=== PATIENT | female | born 1940 | race Caucasian/White ===

== ENCOUNTER 2016-10-10 10:18 | Inpatient (IN) | payer MEDICARE, BC ==
[~2016-10-10] VITALS: Ht 165.1 cm; Wt 74.6 kg
--- NOTE | ~2016-10-10 | HP ---
ADMIT: 10/10/2016 RM/LOC: 429 [facility] MR#: [id number] [address] [facility] [place], [place] [address] AMANDO SCHULTZ [address] [place] [address] History and Physical SEX: F AGE: 76 : 1940 DATE OF SERVICE: CHIEF COMPLAINT: Nausea and shortness of breath. HISTORY OF PRESENT ILLNESS: The patient is a 76-year-old female. She has a past medical history of recently diagnosed myasthenia, GERD, who presents to [facility] Room today with complaints of shortness of breath and nausea, going on over the last several days. The patient has noted paroxysms of just shortness of breath and tightness in her jaw with squeezing feeling in her neck going along with shortness of breath. She has also noted progressive weakness and decreased exercise tolerance. The patient has noted a little bit of lower abdominal discomfort and some bloating and no dysuria or fevers or chills have been noted. The patient also notes that she really struggled with her myasthenia, currently on a regimen of prednisone and Mestinon. Full work diagnosis was made in February or March in [place], initially she was on higher doses of prednisone. The patient's neck muscle weakness and eyelid droop improved greatly, but shoulder and proximal muscle weakness just has not improved as much of the family would like and were hoping to get in to see some neurologist here locally. In the emergency room, the patient was also noted to be mildly hypoxemic and put on a couple of liters of oxygen. She is admitted for further evaluation and treatment. PAST MEDICAL HISTORY: 1. Myasthenia gravis, diagnosed in [place], currently on Mestinon 60 q.i.d. and prednisone 20 mg daily. 2. Anxiety. 3. Gastroesophageal reflux disease. 4. Glaucoma. 5. She is status post total hysterectomy. 6. Status post x2. 7. History of knee arthroscopy. The patient does note she has had colonoscopies x2 in the past and has gotten regular mammograms. 8. Atrophic vaginitis. CURRENT MEDICATIONS: Include: 1. Mestinon 60 mg q.i.d. 2. Prednisone 5 mg four times a day. 3. Diazepam 5 mg p.r.n. 4. Omeprazole 20 mg daily. 5. Latanoprost eyedrops. 6. Vitamin herbal concentrate. 7. Estrace cream twice weekly. ALLERGIES: SHE HAS NO KNOWN MEDICAL ALLERGIES. FAMILY HISTORY: Mother with heart disease. Father needed a pacemaker. 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 No alcohol or tobacco. She is as mentioned, recently moved back to [place] from [place] to be closer to family members. REVIEW OF SYSTEMS: Review of systems are noted above. The patient also denies any dysphagia or dysarthria. She denies any focal neurologic complaints, does mention some mild ankle swelling. No fevers or chills have been noted. PHYSICAL EXAMINATION: VITAL SIGNS: T-max is 100, 92, 24, 95/50, 92% on 2 L by nasal cannula. GENERAL: This is an obese elderly female. She is in no apparent distress. She is awake. She is alert and oriented x3. Cooperative and pleasant with the examiner. Anxious at times throughout our interview. NECK: Supple without any obvious lymphadenopathy. HEART: Regular. LUNGS: May be a little diminished at the bases, but otherwise were clear. ABDOMEN: Soft, nontender, and nondistended. Positive bowel sounds throughout. EXTREMITIES: She has really maybe just trace ankle edema. Pulses were positive. NEUROLOGIC: Cranial nerves are intact. No focal deficits are noted at this time. She has good manager oncology strength. SKIN: Shows no obvious rashes. LABORATORY DATA: Lab work shows hemoglobin of 13.4, white count 17.5, and 171,000 platelets. Sodium 134, potassium 4, BUN is 18, creatinine 0.9, bicarb is 26, BNP was 7460, CK 27, MB 1.3, troponin is 0.258. LFTs were within normal limits. UA showed 1+ blood, positive nitrite, trace leukocyte esterase, 11 white cells, 1 red cell, rare bacteria. Procalcitonin was 0.25 with a lactic acid of 1.5. Chest x-ray shows no obvious airspace disease, maybe some mild cardiomegaly. EKG shows normal sinus rhythm at 85 beats per minute. I do not see any acute ST or T-wave segment changes. ASSESSMENT AND PLAN: 1. Dyspnea, jaw pain, chest tightness concerning for anginal equivalent. 2. Elevated troponin, possible acute coronary syndrome. 3. Hypoxic respiratory failure. 4. Myasthenia gravis on prednisone and Mestinon. 5. Urinary tract infection. PLAN: At this time, Cardiology will see the patient. We are going to trend other cardiac enzymes and EKGs, she needs an echo. She does not look grossly fluid overloaded at this point, does not have lot of pulmonary edema or rales. Her BNP is elevated, as mentioned we will see what her echo looks like and trend those enzymes. I am concerned that these paroxysms of chest tightness ADMIT: 10/10/2016 RM/LOC: 429 [facility] MR#: [id number] [address] [facility] [facility] [place], [place] [address] AMANDO SCHULTZ [address] [place] [address] History and Physical SEX: F AGE: 76 : 1940 or squeezing sensation in her neck and jaw pain might be an anginal equivalent. We will see how things go. Her respiratory status, she is not using any accessory muscles right now. D-dimer is pending. We are going to try to titrate her oxygen, make sure she has incentive spirometry. I am actually going to check a blood gas on her. Concerning her myasthenia gravis, they were concerned about getting in to see Dr. Reynolds with Neurology. Right now, I am going to change her over to some IV Solu-Medrol and continue with the Mestinon. We will have some Pepcid for GI protection. If she is not currently having any nausea, but it sounds like she had a lot of side effects from pyridostigmine, might need to use some glycopyrrolate to help with some of those side effects. We are going to cover her with antibiotics right now. Blood cultures are pending. We will follow her closely on telemetry. Bret Garcia MD/ bernardo JOB #: [id number] CC: Cody Rice, Attending Physician Cody Rice, Family Physician
--- NOTE | ~2016-10-10 | ECH ---
Transthoracic Echocardiography Report (TTE) Demographics Patient Name AMANDO SCHULTZ Date of Study 10/11/2016 M Patient Number [id number] Visit Number [id number] Date of 1940 Room Number 429 Accession Number [id number] Gender Female Age 76 year(s) Referring Jose Lam MD Kiln Charger Charla Lopez [facility] Physician Physician Yogi Delaney MD Fagoter Physician Mckinley Supervising Ordering Physician Amalia Pascal MD, MD/P Nurse Stress Lock Installer Conclusions Contractility Score Summary At rest the following contractility abnormalities were noted: Hypokinesis of the Mid franklin-septal, the Mid infero-septal, the Apical septal and the Basal franklin-septal segments. Contractility of all other segments appeared normal. Summary Technically fair exam. The estimated left ventricular ejection fraction is 60-65%. Mild concentric left ventricular hypertrophy. Diastolic assessment reveals Grade I diastolic dysfunction. The interventricular septum is flattened which is consistent with right ventricular pressure / and or volume overload. Moderately dilated right ventricle. Moderately reduced right ventricular function with hypokinesis of the apex. The right atrium is mildly dilated. Moderate tricuspid regurgitation by color Doppler. There is moderate pulmonary hypertension. The pulmonary pressure (RVSP) is 52 mmHg. Mild pulmonic valve regurgitation by color Doppler. Recommendation The patient will be given the results of this study by the physician who ordered the exam. Procedure Type of Study TTE procedure:Echo Complete SF. Procedure Date Date: 10/11/2016 Start: 08:24 AM Technical Quality: Adequate visualization Indications:Elevated Troponin and Pulmonary embolus. Additional Indications:elevated BNP Appropriate Use Criteria: 9 Height: 65 inches Weight: 165 pounds BSA: 1.82 m Rhythm: Irregular HR: 95 bpm BP: 96/63 mmHg M-Mode/2D Measurements LV Diastolic Dimension: 3.56 cm LV Systolic Dimension: 2.09 cm LV Septum Diastolic: 1.07 cm LV PW Diastolic: 1.09 cm AO Root Dimension: 2.69 cm Cardiac Output: 2.9 l/min LA Dimension: 3.37 cm Cardiac Index: 1.59 l/min*m RV Diastolic Dimension: 4.12 cm LA volume index: 15 ml/m LVOT: 2.04 cm LVOT VTI: 9.36 cm RV Base: 5.4 cm LV Stroke volume: 30.58 ml RV Mid: 4.2 cm LV Stroke volume index: 16.8 ml/m RV Length: 6 cm TAPSE: 1.9 cm TDI-S': 9 cm/s Doppler Measurements AV Peak Velocity: 0.9 m/s MV Peak E-Wave: 0.38 m/s AV Peak Gradient: 3.24 mmHg MV Peak A-Wave: 0.6 m/s AV Mean Gradient: 0.76 mmHg MV E/A Ratio: 0.63 LVOT Peak Velocity: 0.72 m/s MV P1/2t: 62.5 msec AV Area (Continuity):4.08 cm MV Deceleration Time: 265.2 msec TR Velocity:3.31 m/s MV Area (PHT): 3.52 cm TR Gradient:43.88 mmHg PV Peak Velocity: 0.5 m/s Estimated RAP:8 mmHg PV Peak Gradient: 0.98 mmHg Estimated RVSP: 52 mmHg Estimated PASP: 51.88 mmHg RA Area: 18.96 cm Findings Left Ventricle The left ventricle is normal in size . Mild concentric left ventricular hypertrophy. Diastolic assessment reveals Grade I diastolic dysfunction. The interventricular septum is flattened which is consistent with right ventricular pressure / and or volume overload. Right Ventricle Moderately dilated right ventricle. Moderately reduced right ventricular function. Ruiz's sign noted with apical hypokinesis of the RV. Left Atrium Normal left atrial size. Right Atrium The right atrium is mildly dilated. Mitral Valve Normal mitral valve structure and function. Mild mitral regurgitation by color Doppler. Aortic Valve The aortic valve is mildly sclerotic. There is no aortic regurgitation by color Doppler. Tricuspid Valve Normal appearing tricuspid valve. Moderate tricuspid regurgitation by color Doppler. There is moderate pulmonary hypertension. The pulmonary pressure (RVSP) is 52 mmHg. Pulmonic Valve Normal pulmonic valve structure and function. Mild pulmonic valve regurgitation by color Doppler. Pericardial Effusion No evidence of pericardial effusion. Miscellaneous Visualized portions of the aortic root and ascending aorta appear normal in size. Pleural Effusion No evidence of pleural effusion. Contractility Score LV regional wall motion:(0-Non visualized 1-Normal 2-Hypokinesis 3-Akinesis 4-Dyskinesis 5-Aneurysm) Signature Electronically signed by [facility]) on 10/11/2016 10:24 AM
--- NOTE | 2016-10-15 10:29 | CO ---
ADMIT: 10/10/2016 RM/LOC: 429 [facility] MR#: [id number] [address] [facility] [place], [place] [address] AMANDO MARCOS [address] [place] [address] Consultation SEX: F AGE: 76 : 1940 DATE OF CONSULTATION: 10/11/2016 ATTENDING PHYSICIAN: Cody Rice CONSULTING PHYSICIAN: Rock Dykes MD HISTORY OF PRESENT ILLNESS: She is seen at the request of Dr. Garcia for evaluation of her pulmonary embolism. The patient is 76, nonsmoker. She has moved to [place] to leave from [place]. End of February, she was diagnosed with myasthenia gravis. Extensive workup there did not show any thymoma. It was her told me diagnosed from the weakness and from serological diagnosis. She has been ever since on treatment with Mestinon and prednisone. She has ended up gaining weight. She has reflux, anxiety, glaucoma, and has had previously hysterectomy and , and knee arthroscopy. She does have atrophic vaginitis. She had no abnormalities in the mammograms. She had a colonoscopy done in 2004 and subsequently the year she could not tell me. MEDICATIONS: 1. Mestinon 60 mg q.i.d. 2. Prednisone 5 mg 4 times a day. 3. Diazepam 5 mg p.r.n. 4. Omeprazole 20 mg daily. 5. Latanoprost eyedrops. 6. Vitamin herbal concentrate. 7. Estrace cream twice weekly. ALLERGIES: NO KNOWN MEDICAL ALLERGIES. 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 Rare alcohol use. Her is a very well informed forensic barb, who has medical information and was asking very pertinent questions. The story that they jointly contributed to were that she has been having some intermittent lower neck tightness, probably starting March. It is infrequent, but for the last 1 week, it has been more so and that is what she came into the hospital for. She had a slightly elevated troponin to 0.258 and that warranted Cardiology consultation, and initially there was a desire to proceed with a cardiac catheterization. She also has been short of breath. She has some edema intermittently in the ankle right more than the left, has gained considerable amount of weight, maybe close to 25 pounds ever since the diagnosis of myasthenia. The questions the diagnosis of myasthenia. He badly needed to see the neurologist here, but I am told that neurologist is not available for new patients. He has taken her to [place], but was not very impressed with the Neurology evaluation. He really wished I was the neurologist, but was disappointed when I told I was not. In any event, she had a CT angiogram done, which shows bilateral pulmonary embolism. There are some clots in the main pulmonary artery, but is not a saddle embolus. She did not have any syncope. Her blood gasses showed mild hypoxia with respiratory ADMIT: 10/10/2016 RM/LOC: 429 [facility] MR#: [id number] [address] [facility] [address] [place] [phone] AMANDO MARCOS [facility] [address] [place] [address] Consultation SEX: F AGE: 76 : 1940 alkalosis, pH 7.468, PCO2 of 29, PO2 66.2, and bicarbonate 20.5 on 2 liters. Her creatinine was 1.1, white count 17.5, may be because of the prednisone, hemoglobin 13.4, and platelets 171. Lactic acid was 1.5, procalcitonin 0.25. Her chest x-ray from 10/10/2016, looked normal to me. CTA showed bilateral pulmonary embolism. PHYSICAL EXAMINATION: GENERAL: She is a very pleasant lady. She was somewhat tachypneic breathing around 22 per minute. She is on oxygen supplementation. She has trace edema on the right, none on the left. No calf tenderness. ABDOMEN: Soft. No organomegaly. CHEST: Clear. HEART: There was no heart murmur, but slight tachycardia. VITAL SIGNS: Her blood pressure has been 100/60, heart rate mostly in the high 90s to 100. NECK: There was no lymph node enlargement in the neck. EXTREMITIES: There was no clubbing. I reviewed the labs as I mentioned. She is due to have the venous Doppler studies and echocardiogram. I have discussed with Dr. Delaney. CLINICAL IMPRESSION: 1. Pulmonary embolism, probable deep venous thrombosis in the right leg. 2. Diagnosis of myasthenia gravis and several months of corticosteroid use and concomitant weight gain. She has been having a diarrhea and that is attributed to the Mestinon. I had a long session with and Mrs. Marcos. He mentioned dissolving the clot. I said the clot gets dissolved only with TPA or thrombolytic agents. She is not the right indication for that. She did not have syncope. She does not have any hemodynamic compromise. Slightly elevated troponin may be considered to be because of right-sided strain, and there may be some pulmonary hypertension, but that in herself may not justify giving her thrombolytic therapy with an attended approximately 3% risk of major bleeding. I also told that inferior vena cava umbrella placement is not a recommended measure per [employer] consensus statement. The ADMIT: 10/10/2016 RM/LOC: 429 [facility] MR#: [id number] [address] [facility] [address] [place], [place] [address] AMANDO MARCOS [address] [place] [id number] Consultation SEX: F AGE: 76 : 1940 latest publication came in August 2015. My suggestion would be to treat her with Xarelto, may stop the heparin, Xarelto standard dose being 15 mg b.i.d. for 3 weeks followed by 20 mg a day. The duration may be 3 months to 6 months. A coagulopathy workup may be indicated, and she may need to have a colon check to ensure that there is no malignancy as a cause for her DVT, but the fact that she has gained significant amount of weight. She has been more weak and has been more inactive for the last 1 week or so may be actually the cause for the clot formation. I would like to thank Dr. Garcia for this kind referral. Rock Dykes MD/ bernardo JOB #: [id number] CC: Cody Rice, Attending Physician Cody Rice, Family Physician Bret Garcia MD
--- NOTE | 2016-10-19 10:36 | CO ---
ADMIT: 10/10/2016 RM/LOC: 429 [facility] MR#: [id number] [address] [facility] [place], [place] [address] APARNA SCHULTZ [address] [place] [address] Consultation SEX: F AGE: 76 : 1940 DATE OF CONSULTATION: 10/10/2016 ATTENDING PHYSICIAN: Cody Rice CONSULTING PHYSICIAN: Dolly Holland MD REASON FOR CONSULT: Elevated troponin. HISTORY OF PRESENT ILLNESS: Aparna is a very pleasant 76-year-old female, who presented to the ER today after increasing frequency and severity of episodes of throat tightness, which radiates inferiorly through her sternum. She states that this first started happening about 3 weeks ago, but it would only last a few seconds. As of this week, it has happened four times and has lasted anywhere from 45-60 minutes at a time. It would happen when she is just sitting in a chair. Nothing seems to make the pain worse or help the pain go away. She has tried taking Valium when it happens and it does not seem to help. She has recently been struggling with myasthenia gravis, which was diagnosed in March of 2016. She has had increasing profound weakness and shortness of breath upon exertion. She thinks that the shortness of breath is due to the weakness caused by the myasthenic gravis. She was diagnosed with this while she and her were still living in [place]. She had a neurologist there, but is yet to establish care with a neurologist here. She denies having any overt chest pain, orthopnea, PND, palpitations, or presyncopal episodes. CARDIAC HISTORY AND RISK FACTORS: Aparna denies having any sort of cardiac history. She states that she has never had heart problems in the past. She is a lifetime nonsmoker, and denies ever having high blood pressure, high cholesterol or diabetes. She has no family history of coronary artery disease. PAST MEDICAL HISTORY: This includes; myasthenia gravis, diagnosed in March of 2016. Bilateral shoulder pain. Intermittent acid reflux. Anxiety. Recent vaginal discharge. Hemorrhoids. Glaucoma. Cataracts. PAST SURGICAL HISTORY: Per patient report, she has had a hysterectomy and knee surgery. ALLERGIES: NO KNOWN MEDICAL ALLERGIES. MEDICATIONS: Home medications include: 1. Pyridostigmine. 2. Omeprazole. 3. Latanoprost. 4. Diazepam. 5. Estrace cream. 6. Prednisone 5 mg, five times daily. 7. Multivitamin. ADMIT: 10/10/2016 RM/LOC: 429 [facility] MR#: [id number] [address] [facility] [address] [place] [phone] APARNA SCHULTZ [address] [place] [address] Consultation SEX: F AGE: 76 : 1940 FAMILY HISTORY: Aparna states that her father did have a pacemaker. She states her mother took digitalis for many years, but she is unaware of her underlying diagnosis. There is no other family history of heart disease, diabetes, cancer, or stroke that she is aware of. SOCIAL HISTORY: Aparna does admit to drinking 2-3 cups of caffeinated beverages daily. She denies any use of alcohol or nonprescription drugs. 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 They have been for 58 years. They previously lived in [facility] [place], but have recently moved to [place] to be near their son, [id number], and grandchildren. REVIEW OF SYSTEMS: GENERAL: Positive for fatigue. Positive for weight gain. Denies fever, chills, sweats, rash. EYES: Positive for glaucoma and cataracts. Denies double vision, blurred vision. ENT: Positive for ringing in ears. Denies hearing loss or problems with nose, mouth or throat. PULMONARY: Positive for snoring loudly at night. Denies cough, sputum production, asthma, emphysema or bronchitis. Denies wakefulness at night, or fatigue upon awakening. GASTROINTESTINAL: Positive for throat tightness and hemorrhoids. Denies heartburn. No change in bowel habits. Denies dark or bloody stools. No history of ulcers, hiatal hernia, or gallbladder or liver disease. GENITOURINARY: Denies dysuria, hematuria, nocturia, urinary tract infection, or kidney stones. Denies history of renal insufficiency or failure. MUSCULOSKELETAL: Positive for arthritis. Denies history of gout. Denies muscle or joint pains. ENDOCRINE: Denies history of thyroid dysfunction or diabetes. HEMATOLOGIC: Denies history of anemia, easy bruising, or cancer. NEUROLOGIC: Denies chronic headaches, dizziness, syncope, stroke, seizures or numbness or tingling. PSYCHIATRIC: Positive for anxiety. Denies history of mental illness or feelings of depression. PHYSICAL EXAMINATION: VITAL SIGNS: Blood pressure 95/50, pulse 92, respirations 24, temperature 102, O2 saturation 92%. GENERAL: Alert, in no acute distress. SKIN: [place], warm and dry. EYES: Sclerae clear. No xanthelasmas. ENT: Oral mucosa is pink and moist. No jugular venous distention or carotid bruits. CHEST: Respirations are even and unlabored. Lungs are clear to auscultation. HEART: Regular rate and rhythm. Normal S1, S2. No murmurs, rubs or gallops. ABDOMEN: Soft and nontender. MUSCULOSKELETAL: Gait is normal. EXTREMITIES: Peripheral pulses palpable. No clubbing, cyanosis or edema. ADMIT: 10/10/2016 RM/LOC: 429 [facility] MR#: [id number] [address] [facility] [address] [place], [place] [address] APARNA SCHULTZ [facility] [address] [place] [address] Consultation SEX: F AGE: 76 : 1940 PSYCHIATRIC: Alert and oriented. Mood and affect are appropriate. NEUROLOGIC: No gross deficits noted. DIAGNOSTIC STUDIES: WBC 17.5, hemoglobin 13, platelets 171. ANC 15.4, lactate 2.2. CMP within normal limits. Magnesium 2.2. BNP 7460. Procalcitonin 0.25, CK 27, MB 1.3. Troponin 0.258. Chest x-ray was negative for acute findings. EKG revealed sinus rhythm with PACs. No acute ST changes. ASSESSMENT: 1. Abnormal troponin. 2. Jaw pain. 3. Myasthenia gravis. 4. Urinary tract infection. PLAN: Her symptoms and abnormal troponin do raise some suspicion for acute coronary syndrome. Her CK and her EKG were normal. For now, we are going to trend her cardiac enzymes and check an echocardiogram. If there are no further elevations in troponin and her echocardiogram is unremarkable, we would consider stress testing. If her ejection fraction is decreased or there are wall motion abnormalities, or if her enzymes elevate, we would consider proceeding with catheterization. We will continue to follow closely and monitor her results as they are available. YOLANDA Lee Student / Dolly Holland MD / bernardo JOB #: [id number] CC: Cody Rice, Attending Physician Cody Rice, Family Physician
--- NOTE | 2016-10-19 12:50 | DS ---
ADMIT: 10/10/2016 RM/LOC: 429 [facility] MR#: [id number] [address] [facility] [place], [place] [phone] AMANDO SCHULTZ [address] [place] [address] Discharge Summary SEX: F AGE: 76 : 1940 ADMISSION DATE: 10/10/2016 DISCHARGE DATE: 10/17/2016 DISCHARGE DIAGNOSES: 1. Bilateral large pulmonary emboli. 2. Right lower extremity deep venous thrombosis. 3. E (Escherichia) coli urinary tract infection. 4. Accidental fall. 5. Left frontal hematoma. 6. Scattered thorax contusions. 7. Myasthenia gravis, on Mestinon and prednisone. 8. Questionable steroid induced myopathy. CONSULTATIONS: 1. Pulmonology. 2. Cardiology. 3. Neurology. PROCEDURES: None. REASON FOR ADMISSION: A very pleasant, 76-year-old female who presented to [facility] Emergency Room via squad with complaints of chest tightness and neck discomfort. She was noted to have an elevated troponin and she was admitted for further evaluation and treatment. For complete details, please see H and P dictated on the day of admission. HOSPITAL COURSE: The patient was placed in a telemetry bed. With her elevated troponin she was monitored on telemetry and setup for serial cardiac enzymes and EKGs and Cardiology was consulted. The symptoms overall were strain, she had no EKG changes. She was noted to have a very elevated BNP with a normal chest x-ray and there was concern for pulmonary embolus. She had a D-dimer that was elevated. She underwent CT scanning of the chest that did show bilateral PEs rather large in nature. She was started on anticoagulation and Pulmonary was consulted. She underwent Doppler imaging that showed a right lower extremity deep VT. Her blood pressures were a little low but she was never hemodynamically unstable and was not thought to be a candidate for lytics. She underwent an echocardiogram that did show some right ventricular strain which was consistent with that mild troponin leak. Her troponins trended down. She was switched from IV unfractionated heparin to Xarelto. She had also had some dysuria and underwent a UA that showed urinary tract infection that was sensitive. Initially she was placed on IV antibiotics and then changed to Macrobid for which she had good resolution of symptomatology. She was doing well with PT and OT. With her history of myasthenia gravis, she was followed closely with them. The patient did have a fall in the bathroom and suffered some contusions as well as a frontal hematoma. She underwent a couple of CT scans of the head that just showed a frontal hematoma, there were no other abnormalities noted and given her large clot burden of pulmonary embolus she was continued on her Xarelto. Per the patient's request, the patient was seen by Neurology who felt that she could ADMIT: 10/10/2016 RM/LOC: 429 [facility] MR#: [id number] [address] [facility] [address] [place] [id number] AMANDO SCHULTZ [facility] [address] [place] [address] Discharge Summary SEX: F AGE: 76 : 1940 continue with her Mestinon and prednisone, but probably should try to taper off the prednisone and get on a prednisone sparing regimen secondary to some questionable steroid induced myopathy. Serial CT scans were fine. She was doing well and except for some chronic debility, especially due to her myasthenia, she was thought to need some rehab and she was evaluated by the IRU and transferred up to the IRU on 10/17 for further rehab under the guidance of Dr. Denis Reyes. Discharge medications are found on her discharge medication sheet. She will finish a course of Macrobid. We will plan on six months of Xarelto therapy as total. Remainder of her medications per discharge medication list. Her diet will be as tolerated. Her activity will be per physical therapy, occupational therapy and Dr. Reyes. She will follow up with Dr. Alvarez on discharge from the inpatient rehab unit. Bret Garcia MD/ alejandro JOB #: [id number] CC: Cody Rice MD, Attending Physician Cody Rice MD, Family Physician Claudio Alvarez
--- NOTE | 2016-10-20 06:57 | ER ---
ADMIT: 10/10/2016 RM/LOC: 429 [facility] MR#: [id number] [address] [facility] [place], [place] [phone] AMANDO SCHULTZ [address] [place] [address] Emergency Room Report SEX: F AGE: 76 : 1940 DATE: 10/10/2016 HISTORY OF PRESENT ILLNESS: The patient is a 76-year-old female, presents to the emergency room with her complaining of shortness of breath and some nausea. Started 2 days ago. It is a constant irritation. She states that it may be her myasthenia worsening and this is possibly esophageal spasm. Her is the spokesperson for the couple. He stated that she was diagnosed in February with the myasthenia gravis [place] and they just moved to [place] to be close to their son. REVIEW OF SYSTEMS: Otherwise negative. PAST MEDICAL HISTORY: Glaucoma, knee surgery, and myasthenia gravis. MEDICATIONS: She is on: 1. Prednisone. 2. Mestinon. Apparently, this medication is for myasthenia gravis. ALLERGIES: NO ALLERGIES. SOCIAL HISTORY: Denies drinking drugs or alcohol. PHYSICAL EXAMINATION: GENERAL: Very pleasant, alert and oriented female who had to be put on oxygen because her O2 sats decrease. Alert and oriented. VITAL SIGNS: Blood pressure 103/58 with a heart rate of 113, respirations 26, temp is 98.4. HEENT: Normal inspection. Mouth and throat clear. Ears patent. RESPIRATIONS: No wheezes or rhonchi, but needing some assistance with oxygen. CVS: Tachycardia. ABDOMEN: Soft and nontender, although she does point to the epigastrium and radiation up to her esophagus and neck. EXTREMITIES: Well perfused. No edema. NEURO: Mood and affect are appropriate. LABORATORY DATA: She screened positive for sepsis screening on A. We went ahead and proceeded to put the labs. She does not screen severe sepsis so we do have some labs. The white count 17.5. states that she has been taking prednisone every day 25 mg for her myasthenia gravis. Her lactic acid is 2.2, and that is critical for her. Procalcitonin 0.25 with a glucose of 109. The important factor here is that her troponin came back elevated at 0.258, and her BNP is 7460. Dr. Dumont was then contacted when we received this, and he approached Dr. Delaney's office for heads up. They would like the patient to be admitted. Her urine came back blood 1+, nitrite plus, leukocytes trace, protein 1+, wbc's 11 with the culture and sensitivity pending. Her EKG shows sinus tachycardia, 96 beats per minute. ADMIT: 10/10/2016 RM/LOC: 429 [facility] MR#: [id number] [address] [facility] [address] [place] [phone] AMANDO SCHULTZ [facility] [address] [place] [id number] Emergency Room Report SEX: F AGE: 76 : [address] Reynolds consulted for her myasthenia gravis as he says he has not had a very valid and trusty diagnosis for his at this point. He will be needing some cardiac enzymes re-evaluation or recheck. CLINICAL IMPRESSION: 1. Congestive heart failure, new onset. 2. Urinary tract infection. 3. Sepsis secondary to urinary tract infection, mild. Cardiac enzyme re-evaluation due to cardiac enzyme elevation. Orders received from Dr. Bret Garcia at 12:30. The patient received some fluids already, oxygen at 2 L. She was given Zofran 4 mg ODT for her nausea and is awaiting placement at this time. notified of admission. YOLANDA Hernandes / Estevan Dumont MD / modjeni JOB #: [id number] CC: Bret Garcia MD, Attending Physician Bret Garcia MD, Family Physician
[2016-11-04] MEDS ORDERED: XALATAN2.5 ML OU (07:46)
[2016-11-04] MEDS ORDERED: NORVASC2.5 MG PO (07:46)
[2016-11-04] MEDS ORDERED: DELTASONE DPS10 MG PO (07:46)
[2016-11-04] MEDS ORDERED: VITAMIN D31000 UNIT PO (07:46)
[2016-11-04] MEDS ORDERED: ESTRACE TP (07:46)
[2016-11-04] MEDS ORDERED: MESTINON DPS60 MG PO (07:46)
[2016-11-04] MEDS ORDERED: ULTRAM DPS50 MG PO (07:47)
[2016-11-04] MEDS ORDERED: XARELTO20 MG PO (07:47)
[2016-11-04] MEDS ORDERED: TYLENOL DPS325 MG PO (07:47)
[2016-11-04] MEDS ORDERED: SENOKOT S1 TAB PO (07:48)
[2016-11-04] MEDS ORDERED: LEXAPRO DPS10 MG PO (07:48)
[2016-11-04] MEDS ORDERED: TEARS NATURAL D15 ML OU (07:48)
[2016-11-04] MEDS ORDERED: PROCTOFOAM PR (07:49)
[2016-11-04] MEDS ORDERED: DULCOLAX-DPS10 MG PR (07:49)
--- NOTE | 2016-11-13 10:16 | CO ---
ADMIT: 10/10/2016 RM/LOC: 429 [facility] MR#: [id number] [address] [facility] [place], [place] [phone] AMANDO SCHULTZ [address] [place] [address] Consultation SEX: F AGE: 76 : 1940 DATE OF CONSULTATION: 10/11/2016 ATTENDING PHYSICIAN: Cody Rice CONSULTING PHYSICIAN: Jovan Reynolds MD REASON FOR CONSULTATION: Myasthenia gravis. HISTORY OF PRESENT ILLNESS: The patient is a 76-year-old woman with history of myasthenia gravis, diagnosed in March 2016 in [place] on the basis of blood work positive antibodies and response to Mestinon. She has been on large dose of steroids for a prolonged period of time with Mestinon 60 mg 4 times a day. The Mestinon dose was reduced about 4-6 weeks ago to 30 and then to 20 mg per day dose. The patient reports that she has some vaginal discharge, for which she received third dose of estradiol, Estrace, intravaginally for the third time on Saturday. On Saturday, she had increase in shortness of breath which became even worse in the last couple of days. Throughout this time, she had a tightness sensation in her jaw, neck, and upper chest. The patient became much weaker in the last couple of days and decided to go to the hospital. On admission, she was noted to be dyspneic. She had elevated D-dimers and workup reveals that she has PE and positive DVT in her legs. On admission, the prednisone was changed to Solu-Medrol IV. She was seen by Cardiology for elevated troponins and by Pulmonology for PE. PAST MEDICAL HISTORY: Significant for myasthenia gravis, again diagnosed in March of 2016. She has GERD, vaginal discharge, glaucoma, and cataracts. ALLERGIES: THE PATIENT DOES NOT HAVE ANY MEDICAL ALLERGIES. MEDICATIONS: At home include: 1. Mestinon 60 mg. 2. Prednisone 20 mg daily. 3. Omeprazole. 4. Latanoprost. 5. Diazepam. 6. Multivitamin. FAMILY HISTORY: Some coronary artery disease and history and stroke but no myasthenia. SOCIAL HISTORY: No alcohol, no smoking throughout her life. REVIEW OF SYSTEMS: All systems reviewed and negative except as per HPI and following. GENERAL: She does have fatigue. She gained some weight. MUSCULOSKELETAL: Difficulty elevating shoulders. NEUROLOGICAL: Generalized weakness. ADMIT: 10/10/2016 RM/LOC: 429 [facility] MR#: [id number] [address] [facility] [address] [place], [place] [address] AMANDO SCHULTZ [facility] [address] [place] [id number] Consultation SEX: F AGE: 76 : 1940 PSYCHIATRIC: Anxiety. PHYSICAL EXAMINATION: VITAL SIGN: Temperature 98.1, heart rate 97, respirations 20, blood pressure 100/44, saturation 96% on O2. The patient is in mild discomfort due to her shortness of breath. She appears anxious. HEAD: Normocephalic. NECK: Supple. CHEST: She is tachypneic. CARDIOVASCULAR: Tachycardic. ABDOMEN: Nondistended. EXTREMITIES: No clubbing or cyanosis. NEUROLOGICAL: The patient is awake, alert, and appropriately oriented. No aphasia nor dysarthria. The patient becomes short of breath while talking in sentences. Tone of voice seems to be intact. Mood, she is anxious and worried. Cranial nerves; visual maki are intact. Pupils equal and reactive. Extraocular muscles intact. Facial sensation is normal. Face is symmetric. Hearing to voice is intact. Uvula midline. Palatal arch is symmetric. Shoulder shrug symmetric. Tongue is midline, fairly moveable. Motor examination reveals the patient is unable to elevate her elbows up; however, it appears to be more mechanical than from tilted weakness. She is strong otherwise. No other focal weakness is noted. Tone is normal. Sensory to touch nonlateralizing. Reflexes brisk symmetric in upper extremities and knees, reduced in ankles. Coordination; [id number] with limitation of shoulder abduction is normal. Gait did not test special testing. Chet's lid twitch not present. Addition to motor examination, the patient was able to push with 4+/5 strength with forehead up and with her occiput down. Her axial musculature is pretty strong. LABS AND STUDIES: Important labs and studies as discussed in HPI. ASSESSMENT: ADMIT: 10/10/2016 RM/LOC: 429 [facility] MR#: [id number] [address] [facility] [address] [place] [phone] AMANDO SCHULTZ [facility] [address] [place] [address] Consultation SEX: F AGE: 76 : 1940 1. Myasthenia gravis, which appears to be stable. 2. Shortness of breath, more likely related to PE, which is secondary to DVT with potential aftereffect of local Estrace. PLAN: I would change the Solu-Medrol to prednisone with dose of 50 mg per day total daily dose. Continue Mestinon at this time. When the patient becomes more stable, further weaning of the prednisone really will be done down the road. Unfortunately, with recent history of the blood clot, IVIG is a question in the near future. Consideration will be immunosuppression ultimately rather this is long-term plan in the outpatient setting. Thank you very much for this interesting consultation. Jovan Reynolds MD/ bernardo JOB #: [id number] CC: Cody Rice, Attending Physician Cody Rice, Family Physician
== END 2016-10-17 15:34 | disposition short-term general hospital (02) | DRG 175 ==
LOC: ER 10:18 → 4PCU 12:41
PROVIDERS: ADMIT Internal Medicine
DX: I26.99 Other pulmonary embolism without acute cor pulmonale (principal); J96.91 Respiratory failure, unspecified with hypoxia; I82.411 Acute embolism and thrombosis of right femoral vein; I82.441 Acute embolism and thrombosis of right tibial vein; N39.0 Urinary tract infection, site not specified; G72.0 Drug-induced myopathy; G70.00 Myasthenia gravis without (acute) exacerbation; R19.7 Diarrhea, unspecified; H40.9 Unspecified glaucoma; B96.20 Unspecified Escherichia coli [E. coli] as the cause of diseases classified elsewhere; N95.2 Postmenopausal atrophic vaginitis; I50.9 Heart failure, unspecified; I27.2 Other secondary pulmonary hypertension; K21.9 Gastro-esophageal reflux disease without esophagitis; F41.9 Anxiety disorder, unspecified; R79.89 Other specified abnormal findings of blood chemistry; R68.84 Jaw pain; Z79.52 Long term (current) use of systemic steroids; Z82.49 Family history of ischemic heart disease and other diseases of the circulatory system; T38.0X5A Adverse effect of glucocorticoids and synthetic analogues, initial encounter; W19.XXXA Unspecified fall, initial encounter; Y92.231 Patient bathroom in hospital as the place of occurrence of the external cause; S00.12XA Contusion of left eyelid and periocular area, initial encounter

== ENCOUNTER 2016-10-17 15:40 | Inpatient (IN) | payer MEDICARE, BC ==
[~2016-10-17] VITALS: Ht 165.1 cm; Wt 73.9 kg
--- NOTE | 2016-10-19 19:39 | NUR ---
DAY SHIFT SUMMARY: MOD ASSIST WITH GROOMING, DRESSING, TOILETING,TRANSFERS BED W/C/TOILET; PT PERFORMS APPROX 50% OF SHOWERING TASKS; REQUIRES MAX ASSIST FOR SHOWER TRANSFER AND AMBULATION
--- NOTE | 2016-10-25 18:46 | NUR ---
DAY SHIFT SUMMARY: MOD ASSIST OF 1 FOR GROOMING, LOWER BODY DRESSING, TOILET TRANSFERS AND AMBULATION W/ GAIT BELT AND WALKER; SUPERVISED IN UPPER DRESSING, TOILETING, AND BED/W/C/CHAIR TRANSFERS; REQUIRES SENNA S DAILY FOR BOWEL MANAGEMENT
--- NOTE | 2016-10-28 17:35 | NUR ---
SHIFT SUMMARY: PT HAS BEEN UP WITH STANDBY ASSIST AND HAS BEEN STEADY WHEN UP WITH THE WALKER AND GAIT BELT. SHE HAS USED HER NURSE CALL LIGHT EVERY TIME SHE NEEDS TO GET UP IN HER ROOM AND WHEN SHE HAS BEEN IN THE BATHROOM. SHE DOES WELL WITH USING HER ARMS/HANDS TO ACCOMPLISH HER GOALS. SHE HAS DONE WELL SWALLOWING HER PILLS WITH WATER AND HOLDS ON TO HER PILLS STEADY AND PUTS THEM IN HER MOUTH AND THEN HOLD HER WATER PITCHER WELL ENOUGH TO GET A GOOD DRINK TO SWALLOW THEM WITH NO DIFFICULTY. SHE IS PLEASANT AND VOICES KIND WORKS TO THE STAFF WITH APPRECIATION FOR HELP. SHE IS ANXIOUS FOR TEACHING ON HER DIAGNOSIS. NURSE DID SHOW HER AREAS IN HER IRU EDUCATION BINDER SHE CAN STATT TO READ A LITTLE EACH DAY. HER FOUND HER READING SUNGLASSES TODAY AND SHE HAS BEEN ABLE TO DO SOME READING TODAY WHICH MADE HER VERBALLY HAPPY.
--- NOTE | 2016-11-01 14:36 | NUR ---
DAY SHIFT SUMMARY: DENTURES REQUIRED FOR EATING; INDEPENDENT IN DRESSING; USES HANDRAIL FOR TOILETING PRN; RX FOR BOWEL MANAGEMENT; USES WALKER/HAND RAIL FOR SAFE TRANSFERS BED/CHAIR/TOILET AND AMBULATION.
--- NOTE | 2016-11-02 22:17 | NUR ---
1220 DAY SHIFT SUMMARY: EATS WITH DENTURES; EXTRA TIME TO SAFELY GROOM AND TOILET; SHOWER CHAIR USED; INDEPENDENT WITH DRESSING; WEARS DEPENDS-NO ACCIDENTS; ON BOWEL RX;USES WALKER/GRAB BAR FOR SAFE TRANSFERS AND AMBULATION; IS ON LEXAPRO; ABLE TO PROBLEM SOLVE ROUTINE PROBLEMS AT LEAST 91% OFTHE TIME; REQUIRES PROMPTING RT MEMORY OF ROUTINE INFORMATION < 10% OF THE TIME.
[2016-11-04] MEDS ORDERED: ESTRACE TP (07:46)
[2016-11-04] MEDS ORDERED: DELTASONE DPS10 MG PO (07:46)
[2016-11-04] MEDS ORDERED: MESTINON DPS60 MG PO (07:46)
[2016-11-04] MEDS ORDERED: VITAMIN D31000 UNIT PO (07:46)
[2016-11-04] MEDS ORDERED: XALATAN2.5 ML OU (07:46)
[2016-11-04] MEDS ORDERED: NORVASC2.5 MG PO (07:46)
[2016-11-04] MEDS ORDERED: ULTRAM DPS50 MG PO (07:47)
[2016-11-04] MEDS ORDERED: TYLENOL DPS325 MG PO (07:47)
[2016-11-04] MEDS ORDERED: XARELTO20 MG PO (07:47)
[2016-11-04] MEDS ORDERED: LEXAPRO DPS10 MG PO (07:48)
[2016-11-04] MEDS ORDERED: TEARS NATURAL D15 ML OU (07:48)
[2016-11-04] MEDS ORDERED: SENOKOT S1 TAB PO (07:48)
[2016-11-04] MEDS ORDERED: PROCTOFOAM PR (07:49)
[2016-11-04] MEDS ORDERED: DULCOLAX-DPS10 MG PR (07:49)
--- NOTE | 2016-12-05 09:40 | DS ---
ADMIT: 10/17/2016 RM/LOC: 613 [facility] MR#: [id number] [address] [facility] [place], [place] [address] AMANDO SCHULTZ [address] [place] [address] General Discharge Summary SEX: F AGE: 76 : 1940 ADMISSION DATE: 10/17/2016 DISCHARGE DATE: 11/02/2016 DISCHARGE DIAGNOSES: Neurologic condition 03.8, neuro muscular disorders, G70.00 myasthenia gravis without acute exacerbation, onset 10/10/2016 comorbid conditions per initial H and P. Other diagnoses per hospital course below. HOSPITAL COURSE: Please see my initial H and P for details prior to transfer to the IRU. Xarelto continued, which served as DVT prophylaxis. Dietitian followed to optimize nutrition. Pharmacy followed to optimize medication management. Pain and bowel regimen was adjusted. Gynecology consult for atrophic vaginitis and vaginal discharge. Actually, that was delayed and then canceled with plans for outpatient followup. Lab was monitored regularly. Hydrocodone switched to tramadol. Tylenol with tramadol for pain control. Bowel regimen again adjusted. Valium discontinued. Hypophosphatemia replaced. Iron deficiency replaced, which helped with treating anemia. Pepcid changed for GERD. Vitamin D deficiency replaced. Prednisone decreased by Neurology. Estrace started for vaginal atrophic vaginitis and vaginal discharge. Pepcid, Feosol, and vitamin C discontinued. Proctofoam for hemorrhoids. Deltasone decreased after speaking with Neurology. Bath chair ordered for home. Lexapro started for anxiety. Norvasc decreased due to nonspecific low blood pressure readings. History of hypertension. The patient was medically stable at the time of discharge. Please see IRU interdisciplinary discharge summary for details regarding progress in therapy. DISCHARGE DISPOSITION: Home with . DISCHARGE MEDICATIONS: Please see discharge med rec. Was given #30 of Ultram with 3 refills. FOLLOWUP: Home healthcare RN, PT/OT, home health aide. Dr. Reynolds on 11/07/2016. Dr. Delaney on 11/16/2016. Dr. Alvarez in [place] to call for appointment. Dr. Maynor Bermudez, call to make an appointment for followup. Denis Reyes MD/ bernardo JOB #: [id number] CC:
== END 2016-11-02 12:35 | disposition home health service (06) | DRG 57 ==
LOC: 6IRU 15:40
PROVIDERS: ADMIT Physical Medicine & Rehabilitation
PROC: F07Z9YZ Gait Training/Functional Ambulation Treatment using Other Equipment (ICD-10-PCS; principal; 2016-10-17)
PROC: F08Z0ZZ Bathing/Showering Techniques Treatment (ICD-10-PCS; principal; 2016-10-17)
PROC: F07Z5FZ Bed Mobility Treatment using Assistive, Adaptive, Supportive or Protective Equipment (ICD-10-PCS; principal; 2016-10-17)
DX: G70.00 Myasthenia gravis without (acute) exacerbation (principal); S09.90XA Unspecified injury of head, initial encounter; N39.0 Urinary tract infection, site not specified; E83.39 Other disorders of phosphorus metabolism; N95.2 Postmenopausal atrophic vaginitis; G25.1 Drug-induced tremor; I10 Essential (primary) hypertension; K59.00 Constipation, unspecified; I51.9 Heart disease, unspecified; K21.9 Gastro-esophageal reflux disease without esophagitis; D50.9 Iron deficiency anemia, unspecified; E55.9 Vitamin D deficiency, unspecified; K64.9 Unspecified hemorrhoids; F41.9 Anxiety disorder, unspecified; F32.9 Major depressive disorder, single episode, unspecified; N89.8 Other specified noninflammatory disorders of vagina; T38.0X5A Adverse effect of glucocorticoids and synthetic analogues, initial encounter; W19.XXXA Unspecified fall, initial encounter; Z86.718 Personal history of other venous thrombosis and embolism